=== PATIENT | female | born 1965 | race Caucasian/White ===

== ENCOUNTER → 2017-02-28 | Outpatient (CLI) | payer BC | LOC: M LAB 10:58 | PROVIDERS: ATTEND Nurse Practitioner Family | DX: Z98.84 Bariatric surgery status (principal) ==

== ENCOUNTER → 2018-01-01 | Outpatient (REF) | payer BC | LOC: M LAB REF 13:11 | DX: R30.0 Dysuria (principal) | CPT/HCPCS: 87186 ==

== ENCOUNTER 2018-05-14 08:14 | Day surgery (SDC) | payer BC ==
[~2018-05-14 08:14] MED LIST: NS 1,000 ML IV
[2018-05-14] MEDS ORDERED: PROPOFOL 200 MG/20 ML VIAL As Ordered ×2 (09:33→09:35)
== END 2018-05-14 10:57 | disposition home or self-care (01) ==
LOC: M OPP 08:14
DX: Z12.11 Encounter for screening for malignant neoplasm of colon (principal); K64.0 First degree hemorrhoids; D12.3 Benign neoplasm of transverse colon; K57.30 Diverticulosis of large intestine without perforation or abscess without bleeding; Z86.010 Personal history of colon polyps; G47.30 Sleep apnea, unspecified; Z78.0 Asymptomatic menopausal state; Z98.84 Bariatric surgery status; F17.210 Nicotine dependence, cigarettes, uncomplicated; Z90.49 Acquired absence of other specified parts of digestive tract
CPT/HCPCS: 45380

== ENCOUNTER → 2018-06-08 | Outpatient (REF) | payer BC | LOC: M LAB REF 13:24 | DX: N39.0 Urinary tract infection, site not specified (principal) | CPT/HCPCS: 87086 ==

== ENCOUNTER → 2018-11-18 | Outpatient (CLI) | payer BC ==
--- NOTE | 2018-11-19 02:44 | REP ---
Clinical: Acute bronchitis type symptoms . Comparison: 01/08/2017 . Technique: PA and lateral. Findings: The mediastinum and cardiac silhouette are normal. The lung tomas are clear and without acute consolidation, effusion, or pneumothorax. The skeletal structures are intact and normal. Impression: 1. No acute cardiopulmonary process. Electronically Signed by Waldemar Cooney MD 11/19/2018 02:35 A
== END ==
LOC: M WUC 10:33
PROVIDERS: ATTEND Physician Assistant
DX: Z87.09 Personal history of other diseases of the respiratory system (principal)

== ENCOUNTER → 2019-01-15 | Outpatient (CLI) | payer BC ==
--- NOTE | 2019-01-15 12:49 | REPMRS ---
Patient History The patient states she had a clinical breast exam in 01/2019. Patient is postmenopausal. No known family history of cancer. Saline implants in both breasts, 2017. Took hormonal contraceptives for 12 years. 3D TOMOSYNTHESIS WAS PERFORMED. [facility] lifetime risk for breast cancer is 7.4%. Digital Woman Screen Mammo: January 15, 2019 - Exam #: [id number] Bilateral CC and MLO view(s) were taken. Technologist: Radha Wang, Technologist Prior study comparison: March 30, 2015, digital mammo diagnostic bilateral, performed at [facility]. February 15, 2012, bilateral bilat screen digital mammo, performed at [facility] ([facility]). FINDINGS: There are scattered fibroglandular densities. There has been no change in the appearance of the mammogram from the prior studies. There is a mild amount of residual fibroglandular tissue which is fairly symmetric. There is no interval development of dominant mass, architectural distortion, or clustered microcalcification suggestive of malignancy. Assessment: BI-RADS/ACR category 1 mammogram. Negative Mammogram. Recommendation Routine screening mammogram in 1 year (for women over age 40). This mammogram was interpreted with the aid of an FDA-approved computer-aided dectection system. Electronically Signed By: Walter De Anda MD 01/15/19 [id number]
== END ==
LOC: M WHC 11:07
PROVIDERS: ATTEND Nurse Practitioner Family
DX: Z12.31 Encounter for screening mammogram for malignant neoplasm of breast (principal)

== ENCOUNTER → 2019-01-15 | Outpatient (REF) | payer BC ==
[2019-01-22 14:29] LABS: HPV HYBRID CAPTURE II Negative (Negative)
== END ==
LOC: M SFHCWAGY 11:23
PROVIDERS: ATTEND Nurse Practitioner Family
DX: Z12.4 Encounter for screening for malignant neoplasm of cervix (principal)
CPT/HCPCS: 87624; G0123

== ENCOUNTER → 2019-10-27 | Outpatient (CLI) | payer BC ==
--- NOTE | 2019-10-28 03:04 | REP ---
Clinical: Shortness of breath and acute bronchitis . Comparison: 11/18/2018 . Technique: PA and lateral. Findings: The mediastinum and cardiac silhouette are normal. The lung tomas are clear and without acute consolidation, effusion, or pneumothorax. The skeletal structures are intact and normal. Impression: 1. No acute consolidation or effusion. Electronically Signed by Waldemar Cooney MD 10/28/2019 02:55 A
== END ==
LOC: M WUC 14:27
PROVIDERS: ATTEND Physician Assistant
DX: J20.9 Acute bronchitis, unspecified (principal); R06.02 Shortness of breath

== ENCOUNTER → 2020-06-03 | Outpatient (REF) | payer BC ==
[2020-06-03 16:37] LABS: HEMATOCRIT 45.3 % (36.0-47.0); HEMOGLOBIN 14.7 g/dl (12.0-15.5); MEAN CORPUSCULAR HEMOGLOBIN 29.9 pg (27.0-33.0); MEAN CORPUSCULAR HGB CONC 32.5 g/dl (32.0-36.5); MEAN CORPUSCULAR VOLUME 92.1 fl (80.0-96.0); PLATELET COUNT, AUTOMATED 294 10^3/uL (150-450); RED BLOOD COUNT 4.92 10^6/uL (4.00-5.40); WHITE BLOOD COUNT 11.7 10^3/uL (4.0-10.0)
[2020-06-03 17:40] LABS: ALBUMIN 3.9 GM/DL (3.2-5.2); ALT/SGPT 16 U/L (12-78); BILIRUBIN,TOTAL 0.3 MG/DL (0.2-1.0); BLOOD UREA NITROGEN 19 MG/DL (7-18); CALCIUM LEVEL 9.7 MG/DL (8.5-10.1); CARBON DIOXIDE LEVEL 26 MEQ/L (21-32); CHLORIDE LEVEL 108 MEQ/L (98-107); CHOLESTEROL LEVEL 188 MG/DL (<200); CHOLESTEROL RISK RATIO 4.177 (<5); CREATININE FOR GFR 0.77 MG/DL (0.55-1.30); FOLATE 12.9 NG/ML; FREE T4 1.18 NG/DL (0.76-1.46); GLOMERULAR FILTRATION RATE > 60.0 (>51); GLUCOSE, FASTING 77 MG/DL (70-100); HDL CHOLESTEROL 45 MG/DL (>40); LDL CHOLESTEROL 118 MG/DL (<100); NON-HDL-C 143 MG/DL; POTASSIUM SERUM 5.2 MEQ/L (3.5-5.1); SODIUM LEVEL 140 MEQ/L (136-145); TOTAL 25(OH) VITAMIN D 30.8 NG/ML (30.0-100.0); TOTAL PROTEIN 7.2 GM/DL (6.4-8.2); TRIGLYCERIDES LEVEL 125 MG/DL (<150); VITAMIN B12 LEVEL 418 PG/ML
== END ==
LOC: M SFHCADAM 12:32
PROVIDERS: ATTEND Physician Assistant
DX: M62.89 Other specified disorders of muscle (principal); R00.2 Palpitations; F41.9 Anxiety disorder, unspecified; I49.3 Ventricular premature depolarization; E55.9 Vitamin D deficiency, unspecified

== ENCOUNTER → 2020-09-01 | Outpatient (CLI) | payer BC ==
[~2020-09-01] MED LIST changes: +ALLE180T33 PO; -NS 1,000 ML IV; +OMEP-221 PO
== END ==
LOC: M LABSMTC 12:47
PROVIDERS: ATTEND Anesthesiology
DX: Z01.812 Encounter for preprocedural laboratory examination (principal); Z20.822 Contact with and (suspected) exposure to COVID-19

== ENCOUNTER 2020-09-06 08:27 | Day surgery (SDC) | payer BC ==
[~2020-09-06] VITALS: Ht 160 cm; Wt 83.0 kg
[~2020-09-06 08:27] MED LIST changes: +NS 1,000 ML IV ONE
--- OUTSIDE RECORDS SUMMARY | 2020-09-06 08:33 | CCD | Continuity of Care Document ---
Author Author Arianna SALVADOR M.D. Organization Unknown Address [address] [place] [id number] Phone [phone] Care Team Providers Care Tag Meter Operator Name Role Phone Maryellen Cruz AUTM [phone] Problems Active Problems Provider Date Screening for malignant neoplasm of colon Marcelino gamble M.D. Onset: 03/01/2016 Social History Type Date Description Comments Sex Unknown ETOH Use Occasionally Tobacco Use Start: Unknown Patient is a current smoker, smo kes every day Allergies, Adverse Reactions, Alerts Description No Known Drug Allergies Medications Active Medications SIG Qnty Indications Ordering Provide r Date Sutab [id number] Tablets as directed 1box Marcelino Salvador M.D. 08/24/[address] Take 1 Capsule By Mouth Every Day 30 Minutes Before Breakfast U nknown Immunizations Description No Information Available Vital Signs Date Vital Result Comment 08/24/2020 3:30pm Height 63 inches 5'3" Weight 184.00 lb BP Systolic 124 mmHg BP Diastolic 69 mmHg Heart Rate 96 /min BMI (Body Mass Index) 32.6 kg/m2 Weight 83.462 kg Body Temperature 97.3 F 04/09/2018 3:11pm Height 63 inches 5'3" Weight 154.00 lb BP Systolic 105 mmHg BP Diastolic 71 mmHg Heart Rate 85 /min BMI (Body Mass Index) 27.3 kg/m2 Weight 69.854 kg Results Description No Information Available Procedures Description No Information Available Medical Devices Description No Information Available Encounters Type Date Location Provider Dx Diagnosis Office Visit 08/24/2020 3:30p Main Office Marcelino Salvador M.D. Z 86.010 Personal history of colonic polyps R13.10 Dysphagia, unspecified Z80.0 Family history of malignant neoplasm of digestive organs Assessments Date Code Description Provider 08/24/2020 Z86.010 Personal history of colonic poly ps Marcelino Salvador M.D. 08/24/2020 R13.10 Dysphagia Marcelino klein M.D. 08/24/2020 Z80.0 Family history of cancer of colo n Marcelino Salvador M.D. Plan of Treatment Future Appointment(s):* 08/31/2020 6:00 am - Carlos at Main Office * 09/06/2020 9:15 am - Marcelino Salvador M.D. at Main Office 08/24/2020 - Marcelino Salvador M.D.* Z86.010 Personal history of colonic polyps* Comments:* 55 yo female who presents for a colonoscopy/egd due to a h/o colonic polyps,and heartburn/dysphagia. Last scope was in 2018. No c/o abdominal pain, weight loss, change in bowel habits, or rectal bleeding. Positive family h/o colon cancer- mother. No h/o chest pain, or sob. Plan:1. 1.Schedule patient for Colonoscopy + egd + balloon dilatation2. Informed consent given.3. Advised to stop asa, plavix,and anticoagulation 3 to 7 days prior to the procedures. * R13.10 Dysphagia* Comments:* Schedule Upper Endoscopy. * Z80.0 Family history of cancer of colon* Comments:* Plan :1.Setup colonoscopy.2. Informed consent given. Functional Status Description No Information Available Mental Status Description No Information Available Referrals Description No Information Available
--- OUTSIDE RECORDS SUMMARY | 2020-09-06 08:33 | CCD | Continuity of Care Document ---
Author Author Arianna SALVADOR M.D. Organization Unknown Address [address] [place] [address] Phone [phone] Care Team Providers Care Tank Riveter Name Role Phone Maryellen Cruz AUTM [phone] Problems Active Problems Provider Date Screening for malignant neoplasm of colon Marcelino gamble M.D. Onset: 03/01/2016 Social History Type Date Description Comments Sex Unknown ETOH Use Occasionally Tobacco Use Start: Unknown Patient is a current smoker, smo kes every day Allergies, Adverse Reactions, Alerts Description No Known Drug Allergies Medications Active Medications SIG Qnty Indications Ordering Provide r Date Sutab [id number] Tablets as directed 1box Marcelino Salvador M.D. [...] Medical Devices Description No Information Available Encounters Description No Information Available Assessments Date Code Description Provider 08/24/2020 Z86.010 Personal history of colonic poly ps Marcelino Salvador M.D. 08/24/2020 R13.10 Dysphagia Marcelino klein M.D. 08/24/2020 Z80.0 Family history of cancer of colo n Marcelino Salvador M.D. Plan of Treatment Future Appointment(s):* 09/06/2020 9:15 am - Marcelino Salvador M.D. [...]
--- OUTSIDE RECORDS SUMMARY | 2020-09-06 08:34 | CCD ---
Author Author [facility] Organization [facility] Address Unknown Phone Unavailable Care Team Providers Care Cake Wringer Name Role Phone Ana Salvador MD Unavailable Unavailable Ana Salvador MD Unavailable Unavailable Ana Salvador MD Unavailable Unavailable Ana Salvador MD Unavailable Unavailable Ana Salvador MD Unavailable Unavailable Ana Salvador MD Unavailable Unavailable Ana Salvador MD Unavailable Unavailable Ana Salvador MD Unavailable Unavailable Ana Salvador MD Unavailable Unavailable Ana Salvador MD Unavailable Unavailable Ana Salvador MD Unavailable Unavailable Ana Salvador MD Unavailable Unavailable Ana Salvador MD Unavailable Unavailable Ana Salvador MD Unavailable Unavailable Ana Salvador MD Unavailable Unavailable Ana Salvador MD Unavailable Unavailable Ana Salvador MD Unavailable Unavailable Ana Salvador MD Unavailable Unavailable Ana Salvador MD Unavailable Unavailable Ana Salvador MD Unavailable Unavailable Ana Salvador MD Unavailable Unavailable Ana Salvador MD Unavailable Unavailable Ana Salvador MD Unavailable Unavailable Ana Salvador MD Unavailable Unavailable Ana Salvador MD Unavailable Unavailable Ana Salvador MD Unavailable Unavailable Modesto, Ana Benson MD Unavailable Unavailable Modesto, S Marcelino HEAD Unavailable Unavailable Modesto, S Marcelino HEAD Unavailable Unavailable Modesto, S Marcelino HEAD Unavailable Unavailable Modesto, S Marcelino HEAD Unavailable Unavailable Modesto, S Marcelino HEAD Unavailable Unavailable Modesto, S Marcelino HEAD Unavailable Unavailable Modesto, S Marcelino HEAD Unavailable Unavailable Modesto, S Marcelino HEAD Unavailable Unavailable Modesto, S Marcelino HEAD Unavailable Unavailable Modesto, S Marcelino HEAD Unavailable Unavailable Modesto, S Marcelino HEAD Unavailable Unavailable Modesto, S Marcelino HEAD Unavailable Unavailable Modesto, S Marcelino HEAD Unavailable Unavailable Modesto, S Marcelino HEAD Unavailable Unavailable Modesto, S Marcelino HEAD Unavailable Unavailable Modesto, S Marcelino HEAD Unavailable Unavailable Modesto, S Marcelino HEAD Unavailable Unavailable Modesto, S Marcelino HEAD Unavailable Unavailable Modesto, S Marcelino HEAD Unavailable Unavailable Modesto, S Marcelino HEAD Unavailable Unavailable Modesto, S Marcelino HEAD Unavailable Unavailable Modesto, S Marcelino HEAD Unavailable Unavailable Modesto, Ana Benson MD Unavailable Unavailable Dietsche, M Radha CANOE BUILDER Unavailable Unavailable Dietsche, M Radha CANOE BUILDER Unavailable Unavailable Dietsche, M Radha CANOE BUILDER Unavailable Unavailable Dietsche, M Radha CANOE BUILDER Unavailable Unavailable Dietsche, M Radha CANOE BUILDER Unavailable Unavailable Dietsche, M Radha CANOE BUILDER Unavailable Unavailable Dietsche, M Radha CANOE BUILDER Unavailable Unavailable Dietsche, M Radha CANOE BUILDER Unavailable Unavailable Dietsche, M Radha CANOE BUILDER Unavailable Unavailable Dietsche, M Radha CANOE BUILDER Unavailable Unavailable Dietsche, M Radha CANOE BUILDER Unavailable Unavailable Dietsche, M Radha CANOE BUILDER Unavailable Unavailable ESTEPHANIE, TABBY PA Unavailable Unavailable ESTEPHANIE, TABBY PA Unavailable Unavailable ESTEPHANIE, TABBY PA Unavailable Unavailable ESTEPHANIE, TABBY PA Unavailable Unavailable ESTEPHANIE, TABBY PA Unavailable Unavailable ESTEPHANIE, TABBY PA Unavailable Unavailable ESTEPHANIE, TABBY PA Unavailable Unavailable ESTEPHANIE, TABBY PA Unavailable Unavailable ESTEPHANIE, TABBY PA Unavailable Unavailable ESTEPHANIE, TBABY PA Unavailable Unavailable ESTEPHANIE, TABBY PA Unavailable Unavailable ESTEPHANIE, TABBY PA Unavailable Unavailable ESTEPHANIE, TABBY PA Unavailable Unavailable ESTEPHANIE, TABBY PA Unavailable Unavailable ESTEPHANIE, TABBY PA Unavailable Unavailable ESTEPHANIE, TABBY PA Unavailable Unavailable ESTEPHANIE, TABBY PA Unavailable Unavailable ESTEPHANIE, TABBY PA Unavailable Unavailable ESTEPHANIE, TABBY PA Unavailable Unavailable ESTEPHANIE, TABBY PA Unavailable Unavailable ESTEPHANIE, TABBY PA Unavailable Unavailable ESTEPHANIE, TABBY PA Unavailable Unavailable ESTEPHANIE, TABBY PA Unavailable Unavailable ESTEPHANIE, TABBY PA Unavailable Unavailable ESTEPHANIE, TABBY PA Unavailable Unavailable ESTEPHANIE, TABBY PA Unavailable Unavailable ESTEPHANIE, TABBY PA Unavailable Unavailable ESTEPHANIE, TABBY PA Unavailable Unavailable ESTEPHANIE, TABBY PA Unavailable Unavailable ESTEPHANIE, TABBY PA Unavailable Unavailable ESTEPHANIE, TABBY PA Unavailable Unavailable ESTEPHANIE, TABBY PA Unavailable Unavailable ESTEPHANIE, TABBY PA Unavailable Unavailable ESTEPHANIE, TABBY PA Unavailable Unavailable ESTEPHANIE, TABBY PA Unavailable Unavailable ESTEPHANIE, TABBY PA Unavailable Unavailable ESTEPHANIE, TABBY PA Unavailable Unavailable ESTEPHANIE, TABBY PA Unavailable Unavailable ESTEPHANIE, TABBY PA Unavailable Unavailable Chris, A Tesfaye MD Unavailable Unavailable Chris, A Tesfaye MD Unavailable Unavailable Chris, A Tesfaye MD Unavailable Unavailable Chris, A Tesfaye MD Unavailable Unavailable Chris, A Tesfaye MD Unavailable Unavailable Chris, A Tesfaye MD Unavailable Unavailable Chris, A Tesfaye MD Unavailable Unavailable Chris, A Tesfaye MD Unavailable Unavailable Chris, A Tesfaye MD Unavailable Unavailable Chris, A Tesfaye MD Unavailable Unavailable Chris, A Tesfaye MD Unavailable Unavailable Chris, A Tesfaye MD Unavailable Unavailable Chris, A Tesfaye MD Unavailable Unavailable Chris, A Tesfaye MD Unavailable Unavailable Chris, A Tesfaye MD Unavailable Unavailable Chris, A Tesfaye MD Unavailable Unavailable Chris, A Tesfaye MD Unavailable Unavailable Chris, A Tesfaye MD Unavailable Unavailable Chris, A Tesfaye MD Unavailable Unavailable Chris, A Tesfaye MD Unavailable Unavailable Chris, A Tesfaye MD Unavailable Unavailable Chris, A Tesfaye MD Unavailable Unavailable Chris, A Tesfaye MD Unavailable Unavailable Chris, A Tesfaye MD Unavailable Unavailable Chris, A Tesfaye MD Unavailable Unavailable Chris, A Tesfaye MD Unavailable Unavailable Chris, A Tesfaye MD Unavailable Unavailable Chris, A Tesfaye MD Unavailable Unavailable Chris, A Tesfaye MD Unavailable Unavailable Chris, A Tesfaye MD Unavailable Unavailable Chris, A Tesfaye MD Unavailable Unavailable Chris, A Tesfaye MD Unavailable Unavailable Chris, A Tesfaye MD Unavailable Unavailable Chris, A Tesfaye MD Unavailable Unavailable Chris, A Tesfaye MD Unavailable Unavailable Chris, A Tesfaye MD Unavailable Unavailable Chris, A Tesfaye MD Unavailable Unavailable Chris, A Tesfaye MD Unavailable Unavailable Chris, A Tesfaye MD Unavailable Unavailable Chris, A Tesfaye MD Unavailable Unavailable Chris, A Tesfaye MD Unavailable Unavailable Chris, A Tesfaye MD Unavailable Unavailable Chris, A Tesfaye MD Unavailable Unavailable Chris, A Tesfaye MD Unavailable Unavailable Chris, A Tesfaye MD Unavailable Unavailable Chris, A Tesfaye MD Unavailable Unavailable Chris, A Tesfaye MD Unavailable Unavailable Chris, A Tesfaye MD Unavailable Unavailable Chris, A Tesfaye MD Unavailable Unavailable Chris, A Tesfaye MD Unavailable Unavailable Chris, A Tesfaye MD Unavailable Unavailable Chris, A Tesfaye MD Unavailable Unavailable Chris, A Tesfaye MD Unavailable Unavailable Chris, A Tesfaye MD Unavailable Unavailable Chris, A Tesfaye MD Unavailable Unavailable Chris, A Tesfaye MD Unavailable Unavailable Chris, A Tesfaye MD Unavailable Unavailable Chris, A Tesfaye MD Unavailable Unavailable Chris, A Tesfaye MD Unavailable Unavailable Chris, A Tesfaye MD Unavailable Unavailable Chris, A Tesfaye MD Unavailable Unavailable Chris, A Tesfaye MD Unavailable Unavailable Chris, A Tesfaye MD Unavailable Unavailable Chris, A Tesfaye MD Unavailable Unavailable Chris, A Tesfaye MD Unavailable Unavailable Chris, A Tesfaye MD Unavailable Unavailable Chris, A Tesfaye MD Unavailable Unavailable Chris, A Tesfaye MD Unavailable Unavailable Chris, A Tesfaye MD Unavailable Unavailable Chris, A Tesfaye MD Unavailable Unavailable Chris, A Tesfaye MD Unavailable Unavailable Chris, A Tesfaye MD Unavailable Unavailable Chris, A Tesfaye MD Unavailable Unavailable Chris, A Tesfaye MD Unavailable Unavailable Chris, A Tesfaye MD Unavailable Unavailable Chris, A Tesfaye MD Unavailable Unavailable Chris, A Tesfaye MD Unavailable Unavailable Chris, A Tesfaye MD Unavailable Unavailable Chris, A Tesfaye MD Unavailable Unavailable Chris, A Tesfaye MD Unavailable Unavailable Re-disclosure Warning The records that you are about to access may contain information from federally-assisted alcohol or drug abuse programs. If such information is present, then the following federally mandated warning applies: This information has been disclosed to you from records protected by federal confidentiality rules (42 CFR part 2). The federal rules prohibit you from making any further disclosure of this information unless further disclosure is expressly permitted by the written consent of the person to whom it pertains or as otherwise permitted by 42 CFR part 2. A general authorization for the release of medical or other information is NOT sufficient for this purpose. The Federal rules restrict any use of the information to criminally investigate or prosecute any alcohol or drug abuse patient.The records that you are about to access may contain highly sensitive health information, the redisclosure of which is protected by Article 27-F of the [facility] Public Health law. If you continue you may have access to information: Regarding HIV / AIDS; Provided by facilities licensed or operated by the [facility] Office of Mental Health; or Provided by the [facility] Office for People With Developmental Disabilities. If such information is present, then the following [facility] mandated warning applies: This information has been disclosed to you from confidential records which are protected by state law. State law prohibits you from making any further disclosure of this information without the specific written consent of the person to whom it pertains, or as otherwise permitted by law. Any unauthorized further disclosure in violation of state law may result in a fine or alf sentence or both. A general authorization for the release of medical or other information is NOT sufficient authorization for further disc losure. Family History Family Member Name Family Member Gender Family Member Status Date o f Status Description Data Source(s) Unknown Unknown Problem [facility] ([facility]) Unknown Female Problem [facility] ([facility]) Unknown Male Problem [facility] ([facility] Encounters Encounter Providers Location Date Indications Data Source(s ) Outpatient Attender: Marcelino Salvador MD Main Office 08/24/2020 02:30:00 PM EST [facility] ([facility]) Outpatient Attender: Tesfaye Perez MD [place] 07/13/2020 01:00:00 P M EST [facility] ([facility]) Outpatient [address] [facility], [facility] [id number] 06/24/2020 12:00:00 AM EST eCW1 ([facility]) Outpatient Referrer: Radha Figueroa NP 11/05/2019 05:48:00 AM EDT [facility] Outpatient Attender: TABBY romo 10/27/2019 02:00:00 PM EDT [facility] ([facility] Medications Medication Brand Name Start Date Product Form Dose Route Admi nistrative Instructions Pharmacy Instructions Status Indications Reaction Description Data Source(s) Sutab Sutab 08/24/2020 12:00:00 AM EST active MED[facility] ([facility]) 60 ACTUAT Albuterol 0.09 MG/ACTUAT Metered Dose Inhaler [place] Sulfate HFA 10/27/2019 12:00:00 AM EDT RESPIRATORY active MED[facility] ([facility]) Prednisone 20 MG Oral Tablet Prednisone 10/27/2019 12:00:00 AM EDT ORAL active MED[facility] ([facility]) Fluticasone Propionate Fluticasone Propionate 10/27/2019 12:00:00 AM E DT active MEDENT ([facility]) Insurance Providers Payer name Policy type / Coverage type Policy ID Covered green party ID Covered green party's relationship to garrido Policy [place] Plan Information [employer] [place]/307 [id number] SP [id number] [place] [place]/307 [id number] 2 [id number] [place]/307 [id number] SP [id number] [employer]BS B [id number] P [id number] [employer] [place] 302/307 [id number] ANSI-Commercial [id number] BC[employer] Commercial [id number] Family Dependent [id number] [employer]/[place] Commercial [id number] Family Dependent [id number] [employer]/[place] Commercial [id number] Family Dependent [id number] BC[employer]/[place] Commercial [id number] Family Dependent [id number] [employer] BC-BS PPO 306 [id number] [place] Commercial [id number] Family Depende nt [id number] EXCELLUS H [id number] Spouse [id number] EXCELLUS H [id number] Spouse [id number] [employer] BC-BS PPO 306 [id number] HU2 [id number] [employer] BCBS B [id number] P [id number] [employer] BCBS B [id number] S [id number] [place] [place] PPO 302/307 [id number] [employer] BC-BS PPO 306 [id number] BS [place] Commercial Family Dependent SELF PAY ONLY UNAVAILABLE SP UNAV AILABLE BC/BS [place] Part B Family Dep endent BC/BS [place] Part B Family Dep endent BC/BS [place] Commercial Self EXCELLUS C [id number] Spouse [id number] SELF PAY UNAVAILABLE UNAVAILA BLE EX[employer]US BCBS B [id number] S [id number] [id number] BCBS OF [place] 090/590 [id number] SP [id number] [place] 306/806 [id number] SP [id number] [place] 306/806 [id number] SP [id number] [place] [place] PPO 302/307 [id number] SP [id number] [place] [place] PPO 302/307 [id number] SP [id number] Problems, Conditions, and Diagnoses Code Display Name Description Problem Type Effective Dates Data Source(s) 09212556 Constipation by outlet obstruction Constipation by outlet obstruction Problem 07/13/2020 12:00:00 AM EST [facility] ([facility]) R13.10 [id number] Esophageal dysphagia Problem 06/24/2020 12:0 0:00 AM EST eCW1 ([facility]) F17.210 [id number] Cigarette nicotine dependence without com plication Problem 06/03/2020 12:00:00 AM EST eCW1 ([facility]) E55.9 Vitamin D deficiency Vitamin D deficiency, unspecified Problem 06/03/2020 12:00:00 AM EST eCW1 ([facility]) N81.6 [id number] Rectocele Problem 06/03/2020 12:00:00 AM ES T eCW1 ([facility]) F41.9 [id number] Anxiety Problem 06/03/2020 12:00:00 AM ES T eCW1 ([facility]) I49.3 [id number] PVC (premature ventricular contraction) P roblem 06/03/2020 12:00:00 AM EST eCW1 ([facility]) Results ID Date Data Source [id number] 09/01/2020 12:45:00 PM EST [facility] Name Value Range Interpretation Code Description Data Berenice rce(s) Supporting Document(s) SARS coronavirus 2 RNA Not Detected [facility] [place] This lab was ordered by [facility] and reported by [facility]. Procedure Social History Code Duration Value Status Description Data Source(s ) Smoking 06/24/2020 12:00:00 AM EST Current Smoker completed Curre nt Smoker eCW1 ([facility]) Vital Signs ID Date Data Source UNK Name Value Range Interpretation Code Description Data Source(s) Body temperature 97.3 [degF] 97.3 [degF] [facility] ([facility]) Body weight 83.462 kg 83.462 kg [facility] ([facility]) Body mass index (BMI) [Ratio] 32.6 kg/m2 32.6 k g/m2 [facility] ([facility]) Heart rate 96 /min 96 /min [facility] ([facility]) Diastolic blood pressure 69 mm[Hg] 69 mm[Hg] MED[facility] ([facility]) Systolic blood pressure 124 mm[Hg] 124 mm[Hg] M EDENT ([facility]) Body weight 184.00 [lb_av] 184.00 [lb_av] MEDEN T ([facility]) Body height 63 [in_i] 63 [in_i] [facility] ([facility]) 5'3" Body mass index (BMI) [Ratio] 31.9 kg/m2 31.9 k g/m2 [facility] ([facility]) Body weight 180.00 [lb_av] 180.00 [lb_av] MEDEN T ([facility]) Body height 63 [in_i] 63 [in_i] MEDENT ([facility]) 5'3" Respiratory rate 18 /min 18 /min [facility] ( [facility]) Body temperature 97.9 [degF] 97.9 [degF] [facility] ([facility]) Heart rate 84 /min 84 /min MED[facility] ([facility]) Diastolic blood pressure 84 mm[Hg] 84 mm[Hg] [facility] ([facility]) Systolic blood pressure 110 mm[Hg] 110 mm[Hg] M EDENT ([facility]) Diastolic blood pressure 64 mm[Hg] 64 mm[Hg] eCW1 ([facility]) Systolic blood pressure 120 mm[Hg] 120 mm[Hg] e CW1 ([facility]) Body temperature 98.5 [degF] 98.5 [degF] eCW1 ( [facility]) Respiratory rate 18 /min 18 /min eCW1 ([facility]) Heart rate 95 /min 95 /min eCW1 ([facility]) Body mass index (BMI) [Ratio] 32.20 kg/m2 32.20 kg/m2 W1 ([facility]) Body height 63 [in_i] 63 [in_i] eCW1 ([facility]) Body weight 181.8 [lb_av] 181.8 [lb_av] eCW1 ([facility]) Body mass index (BMI) [Ratio] 29.2 kg/m2 29.2 k g/m2 MEDENT ([facility]) Body height 63 [in_i] 63 [in_i] MED[facility] ([facility]) 5'3" Body weight 165.00 [lb_av] 165.00 [lb_av] MEDEN T ([facility]) Body temperature 98.0 [degF] 98.0 [degF] MED[facility] ([facility]) Oxygen saturation in Arterial blood by Pulse oximetry 96 % 96 % [facility] ([facility]) Respiratory rate 18 /min 18 /min [facility] [place] [facility]) Heart rate 81 /min 81 /min [facility] ([facility]) Diastolic blood pressure 68 mm[Hg] 68 mm[Hg] [facility] ([place] [facility]) Systolic blood pressure 111 mm[Hg] 111 mm[Hg] [facility] ([facility])
--- OUTSIDE RECORDS SUMMARY | 2020-09-06 08:34 | CCD | Continuity of Care Document ---
Author Author Arianna CLIFFORD MD Organization Unknown Address [address] [place] [id number] Phone [phone] Care Team Providers Care Advertising Copy Writer Name Role Phone Maryellen CruzM [phone] Problems Description No Information Available Social History Description No Information Available Allergies, Adverse Reactions, Alerts Description No Information Available Medications Description No Information Available Immunizations Description No Information Available Vital Signs Date Vital Result Comment 07/13/2020 2:06pm BP Systolic 110 mmHg BP Diastolic 84 mmHg Heart Rate 84 /min Body Temperature 97.9 F Respiratory Rate 18 /min Height 63 inches 5'3" Weight 180.00 lb BMI (Body Mass Index) 31.9 kg/m2 Results Description No Information Available Procedures Description No Information Available Medical Devices Description No Information Available Encounters Description No Information Available Assessments Description No Information Available Plan of Treatment No Information Available Functional Status Description No Information Available Mental Status Description No Information Available Referrals Description No Information Available
--- OUTSIDE RECORDS SUMMARY | 2020-09-06 08:34 | CCD ---
Author Author [facility] Organization 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 Active 73864238 Problem Allergic rhinitis, cause unspecified 477.9 Act yfn 01794823 Problem Asthma, unspecified, unspecified status 493.90 Active 86116521 Problem Nondependent tobacco use disorder 305.1 Active 734504400 Problem Depressive disorder, not elsewhere classified 311 Active 92184715 Problem Vitamin d deficiency 268.9 Active 19528358 Problem Morbid obesity 278.01 Active 619503451 Problem Allergic rhinitis, cause unspecified J30.9 Act yfn 33411105 Problem Status post bariatric surgery Z98.84 Active 16 1358211 Problem Tobacco abuse Z72.0 Active 91008422 Problem PVC (premature ventricular contraction) I49.3 Active 05273268 Problem Chronic constipation K59.00 Active 362418772 Problem Esophageal dysphagia R13.10 Active 94206028 Problem Morbid obesity due to excess calories E66.01 Ac tive 419471417 Problem Anxiety F41.9 Active 61574178 Problem Rectocele N81.6 Active 7746833 Problem Vitamin D deficiency, unspecified E55.9 Active 48211703 Problem Cigarette nicotine dependence without complication F17.210 Active 50296688 ALLERGIES Allergen (clinical drug ingredient) Drug/Non Drug Allergy do cumented on EMR Reaction Allergy Type Onset Date Status Zyrtec D 12hr Rash Drug Allergy Active ENCOUNTERS from 1965 to 2020-07-06 Encounter Location Date Provider Diagnosis [facility] [address] [place] [id number] Jun, Reg ilia Wetterhahn Esophageal dysphagia R13.10 ; Rectocele N81.6 and Cigarette nicotine dependence without complication F17.210 IMMUNIZATIONS Vaccine Route Administration Date Status Influenza (Pharmacy Given) Unknown Apr 21, 2019 Admin istered Influenza (6mo & up) Fluzone IM Intramuscular Apr 08, 2015 Ad ministered SOCIAL HISTORY Tobacco Use: Social History Observation Description Date Details (start date - stop date) Current Smoker Sex Assigned At : Social History Observation Description Sex Assigned At Unknown Education: Question Answer Notes Level of Education: High School GED Language: Question Answer Notes Languages spoken: Swedish Jewish: Question Answer Notes Jewish 33 None Alcohol Screening: Question Answer Notes Did you have a drink containing alcohol in the past year? Ye s Points 1 Interpretation Negative How often did you have six or more drinks on one occas ion in the past year? Never (0 points) How many drinks did you have on a typica l day when you were drinking in the past year? 1 or 2 (0 points) How often did you have a drink containing alcohol in t he past year? Monthly or less (1 point) BMI Care Goal Follow-Up Question Answer Notes Above Normal BMI Follow-Up Giving encouragement to exercise Tobacco Use: Question Answer Notes Are you a: current smoker Patient counseled on the dangers of tobacco use and urged to quit: 01/15/2019 How many cigarettes a day do you smoke? 11-20 Are you interested in quitting? Thinking about quitting Counseled the patient on smoking cessation, education provid ed 01/15/2019 REASON FOR REFERRAL No Information VITAL SIGNS Weight 181.8 lbs Jun, Height 63 in Jun, BMI 32.20 kg/m2 Jun, Heart Rate 95 /min Jun, Respiratory Rate 18 /min Jun, Temperature 98.5 degrees Fahrenheit Jun, Oximetry 96 Jun, Blood pressure systolic 120 mm Hg Jun, Blood pressure diastolic 64 mm Hg Jun, MEDICATIONS Medication SIG (Take, Route, Frequency, Duration) Notes Start Da te End Date Status Ventolin HFA 108 (90 Base) MCG/ACT 2 puffs Inhalation 4 times a day as needed for 30 day(s) Not-Taking Debora 180 MG 1 tablet as needed Orally Twice a day Active Multivitamin Gummies Adults - 1 tab Orally three times daily Active Omeprazole 40 MG 1 capsule 30 minutes before morning meal Orally Once a day for 90 Active Vitamin D 5,000 UNIT 1 tab Orally 1 time weekly Active PROCEDURES No Information RESULTS No Results REASON FOR VISIT 3 week lab follow up MEDICAL (GENERAL) HISTORY Type Description Date Medical History allergic rhinitis, year round environmen merced Medical History asthma, mild intermittent Medical History high triglycerides Medical History morbid obesity Medical History vitamin d deficiency Medical History s/p gastric bypass Medical History Anxiety Medical History Smoker Medical History Chronic Constipation, lack o f bowel urgency, Laxitive dependent (Fleet enema), REctocele, Large Rectal Vault, Pelvic floor Dysfunction per anorectalmanometry by GI specialist in [place] 2015 Medical History H/O Hemorrhoids s/pCRH hemorrhoid bandin g Surgical History C section 84,86,92,95 Surgical History cholecystectomy 91 Surgical History gastric bypass sleeve 09-27-15 Surgical History Tonsilectomy Surgical History saline breast implants 10/2016 Surgical History facial skin removed after gastric sleeve 12/2016 Surgical History colonoscopy polypectomy 2019 Goals Section No Information Health Concerns No Information MEDICAL EQUIPMENT No Information MENTAL STATUS No Information FUNCTIONAL STATUS No Information ASSESSMENTS Encounter Date Diagnosis Assessment Notes Treatment Notes Treatm ent Clinical Notes Jun, Esophageal dysphagia (ICD-10 - R13.10) Jun, Rectocele (ICD-10 - N81.6) Has appt with colorectal specialist pending Jun, Cigarette nicotine dependenc e without complication (ICD-10 - F17.210) PLAN OF TREATMENT Medication Medication Name Sig Start Date Stop Date Omeprazole 40 MG 1 capsule 30 minutes before morning meal Orally Once a day for 90 Treatment Notes Assessment Notes Clinical Notes Rectocele Has appt with barbie dias specialist pending Next Appt Details 1 Year Reason: Insurance Providers Payer Name Payer Address Payer Phone Insured Name Patient Relati onship to Insured Coverage Start Date Coverage End Date BCBS [employer] PPO [phone] [facility] [place] [id number] VERNON PRAJAPATI
--- OUTSIDE RECORDS SUMMARY | 2020-09-06 08:34 | CCD | Continuity of Care Document ---
Author Author Arianna PEREZ MD Organization Unknown Address [address] [place] [address] Phone [phone] Care Team Providers Care Supervisor [employer] Name Role Phone Maryellen Cruz AUTM [phone] Problems Active Problems Provider Date Constipation by outlet obstruction Tesfaye Perez MD Onset : 07/13/2020 Social History Description No Information Available Allergies, [...] Date Location Provider Dx Diagnosis Office Visit 07/13/2020 2:00p [facility] Tesfaye Perez MD K59.02 Outlet dysfunction constipation Assessments Date Code Description Provider 07/13/2020 K59.02 Constipation by outlet obstructi on Tesfaye Perez MD Plan of Treatment No Information Available Functional Status Description No Information Available Mental Status Description No Information Available Referrals Description No Information Available
--- OUTSIDE RECORDS SUMMARY | 2020-09-06 08:34 | CCD | Continuity of Care Document ---
Author Author Arianna CLIFFORD MD Organization Unknown Address [address] [place] [address] Phone [phone] Care Team Providers Care Environmental Planner Name Role Phone Maryellen CruzM [phone] Problems Description No Information Available Social History Description No Information Available Allergies, Adverse Reactions, Alerts Description No Information Available Medications Description No Information Available Immunizations Description No Information Available Vital Signs Description No Information Available Results Description No Information Available Procedures Description No Information Available Medical Devices Description No Information Available Encounters Description No Information Available Assessments Description No Information Available Plan of Treatment No Information Available Functional Status Description No Information Available Mental Status Description No Information Available Referrals Description No Information Available
[2020-09-06] MEDS ORDERED: fentaNYL 100 MCG/2 ML INJECTION (J3010) As Ordered ONE (08:58)
[2020-09-06] MEDS ORDERED: propofoL 500 MG/50 ML VIAL As Ordered ONE (09:00)
[2020-09-06] MEDS ORDERED: LIDOCAINE 2% 100MG/5ML SDV (FOR ANES.) As Ordered ONE (09:06)
--- NOTE | 2020-09-06 09:45 | ROOR ---
Patient Name: Arianna Sen Procedure Date: 09/06/2020 9:25 AM Date of : 1965 Age: 55 Room: [facility] Gender: Female Note Status: Finalized Procedure: Upper GI endoscopy + Balloon Dilatation Indications: Dysphagia, Heartburn Providers: Marcelino Salvador MD Referring MD: MAYNOR Alberto Requesting Provider: Medicines: Monitored Anesthesia Care Complications: No immediate complications. Procedure: Pre-Anesthesia Assessment: - The heart rate, respiratory rate, oxygen saturations, blood pressure, adequacy of pulmonary ventilation, and response to care were monitored throughout the procedure. The Endoscope was introduced through the mouth, and advanced to the second part of duodenum. The upper GI endoscopy was accomplished without difficulty. The patient tolerated the procedure well. Findings: The Z-line was regular and was found 35 cm from the incisors. A medium-sized hiatal hernia was present. A mild Schatzki ring was found at the gastroesophageal junction. A TTS dilator was passed through the scope. Dilation with a 15-16.5-18 mm balloon dilator was performed to 18 mm. Localized mildly erythematous mucosa without bleeding was found in the gastric antrum. The exam of the duodenum was otherwise normal. Impression: - Z-line regular, 35 cm from the incisors. - Medium-sized hiatal hernia. - Mild Schatzki ring. Dilated. - Erythematous mucosa in the antrum. - No specimens collected. - The examination was otherwise normal. Recommendation: - Patient has a contact number available for emergencies. The signs and symptoms of potential delayed complications were discussed with the patient. Return to normal activities tomorrow. Written discharge instructions were provided to the patient. - Resume previous diet. - Discharge patient to home. - Continue present medications. - Return to referring physician. - Use Prilosec (omeprazole) 40 mg PO daily. - The findings and recommendations were discussed with the patient. Procedure Code(s): --- Professional --- 68187, Esophagogastroduodenoscopy, flexible, transoral; with transendoscopic balloon dilation of esophagus (less than 30 mm diameter) Diagnosis Code(s): --- Professional --- K44.9, Diaphragmatic hernia without obstruction or gangrene K22.2, Esophageal obstruction K31.89, Other diseases of stomach and duodenum R13.10, Dysphagia, unspecified R12, Heartburn CPT copyright 2019 [employer] [place] [employer]. All rights reserved. The codes documented in this report are preliminary and upon pr internship review may be revised to meet current compliance requirements. Marcelino Salvador MD Marcelino Salvador MD 09/06/2020 9:45:32 AM Electronically signed by Marcelino Salvador MD Number of Addenda: 0 Note Initiated On: 09/06/2020 9:25 AM Estimated Blood Loss: Estimated blood loss: none.
--- NOTE | 2020-09-06 10:01 | ROOR ---
Patient Name: Arianna Sen Procedure Date: 09/06/2020 9:29 AM Date of : 1965 Age: 55 Room: [facility] Gender: Female Note Status: Finalized Procedure: Total Colonoscopy to Cecum + Biopsy Polypectomy Indications: Colon cancer screening in patient at increased risk: Colorectal cancer in mother Providers: Marcelino Salvador MD Referring MD: MAYNOR Alberto Requesting Provider: Medicines: Monitored Anesthesia Care Complications: No immediate complications. Procedure: Pre-Anesthesia Assessment: - The heart rate, respiratory rate, oxygen saturations, blood pressure, adequacy of pulmonary ventilation, and response to care were monitored throughout the procedure. The Colonoscope was introduced through the anus and advanced to the cecum, identified by appendiceal orifice and ileocecal valve. The colonoscopy was performed without difficulty. The patient tolerated the procedure well. The quality of the bowel preparation was good. Findings: The perianal and digital rectal examinations were normal. Non-bleeding internal hemorrhoids were found during retroflexion. The hemorrhoids were small and Grade I (internal hemorrhoids that do not prolapse). Multiple small and large-mouthed diverticula were found in the recto-sigmoid colon, sigmoid colon and descending colon. A diminutive polyp was found in the ileocecal valve. The polyp was sessile. The polyp was removed with a cold biopsy forceps. Resection and retrieval were complete. The exam was otherwise without abnormality on direct and retroflexion views. Impression: - Non-bleeding internal hemorrhoids. - Diverticulosis in the recto-sigmoid colon, in the sigmoid colon and in the descending colon. - One diminutive polyp at the ileocecal valve, removed with a cold biopsy forceps. Resected and retrieved. - The examination was otherwise normal on direct and retroflexion views. - The exam was otherwise normal to the cecum. Recommendation: - Patient has a contact number available for emergencies. The signs and symptoms of potential delayed complications were discussed with the patient. Return to normal activities tomorrow. Written discharge instructions were provided to the patient. - High fiber diet. - Discharge patient to home. - Continue present medications. - Await pathology results. - Telephone GI clinic for pathology results in 1 week. - Repeat colonoscopy in 5 years for screening purposes. - Return to referring physician. - The findings and recommendations were discussed with the patient. Procedure Code(s): --- Professional --- 20134, Colonoscopy, flexible; with biopsy, single or multiple Diagnosis Code(s): --- Professional --- Z80.0, Family history of malignant neoplasm of digestive organs K64.0, First degree hemorrhoids K63.5, Polyp of colon K57.30, Diverticulosis of large intestine without perforation or abscess without bleeding CPT copyright 2019 [employer]. All rights reserved. The codes documented in this report are preliminary and upon firmware test engineer review may be revised to meet current compliance requirements. Marcelino Salvador MD Marcelino Salvador MD 09/06/2020 10:00:51 AM Electronically signed by Marcelino Salvador MD Number of Addenda: 0 Note Initiated On: 09/06/2020 9:29 AM Estimated Blood Loss: Estimated blood loss: none.
[2020-09-06 10:28] VITALS: BP 103/51
== END 2020-09-06 10:31 | disposition home or self-care (01) ==
LOC: M OPP 08:27
PROVIDERS: ATTEND Internal Medicine Gastroenterology
DX: Z12.11 Encounter for screening for malignant neoplasm of colon (principal); Z80.0 Family history of malignant neoplasm of digestive organs; R13.10 Dysphagia, unspecified; R12 Heartburn; D12.0 Benign neoplasm of cecum; K64.0 First degree hemorrhoids; K57.30 Diverticulosis of large intestine without perforation or abscess without bleeding; K44.9 Diaphragmatic hernia without obstruction or gangrene; K22.2 Esophageal obstruction; K31.89 Other diseases of stomach and duodenum; F17.210 Nicotine dependence, cigarettes, uncomplicated; Z98.84 Bariatric surgery status; Z79.899 Other long term (current) drug therapy
CPT/HCPCS: 43249; 45380; 88305; J3010

== ENCOUNTER → 2020-10-12 | Outpatient (REF) | payer BC ==
[~2020-10-12] MED LIST changes: -NS 1,000 ML IV ONE
[2020-10-12 17:06] LABS: APPEARANCE, URINE CLEAR (CLEAR); BACTERIA, URINE AUTO NEGATIVE (NEGATIVE); BILIRUBIN, URINE AUTO NEGATIVE (NEGATIVE); BLOOD, URINE BLOOD 1+ (NEGATIVE); COLOR, URINE STRAW (YELLOW); GLUCOSE, URINE (UA) AUTO NEGATIVE (NEGATIVE); KETONE, URINE AUTO NEGATIVE (NEGATIVE); LEUKOCYTE ESTERASE, URINE AUTO TRACE (NEGATIVE); NITRITE, URINE AUTO NEGATIVE (NEGATIVE); PROTEIN, URINE AUTO NEGATIVE (NEGATIVE); RBC, URINE AUTO 2 /HPF (0-3); SPECIFIC GRAVITY URINE AUTO 1.009 (1.002-1.035); SQUAMOUS EPITHELIAL CELL UR AU 0 /HPF (0-6); UROBILINOGEN, URINE AUTO 0.2 mg/dL (0.0-2.0); WBC, URINE AUTO 1 /HPF (0-3)
== END ==
LOC: M SFHCADAM 13:22
PROVIDERS: ATTEND Physician Assistant
DX: N23 Unspecified renal colic (principal)

== ENCOUNTER → 2020-11-17 | Outpatient (CLI) | payer BC ==
--- NOTE | 2020-11-17 10:10 | REP ---
INDICATION: KIDNEY PAIN COMPARISON: None TECHNIQUE: Real time strickland scale and color ultrasound examination using curved array transducer. FINDINGS: Right kidney measures 11.4 x 4.4 x 5.0 cm with [id number] hydronephrosis and 13 mm, 11 mm, and 10 mm shadowing structures in the lower pole suggesting nonobstructing calculi. Left kidney measures 9.8 x 5.4 x 4.9 cm without hydronephrosis or nephrolithiasis. The bladder is unremarkable as visualized. IMPRESSION: Right-sided hydronephrosis and multiple nonobstructing right renal calculi suggested measuring between 10 and 13 mm. <Electronically signed by Waldemar Cooney > 11/17/20 1007
== END ==
LOC: M RAD 09:27
PROVIDERS: ATTEND Physician Assistant
DX: R31.29 Other microscopic hematuria (principal); R10.9 Unspecified abdominal pain

== ENCOUNTER → 2020-12-17 | Outpatient (REF) | payer BC ==
[2020-12-17 12:33] LABS: APPEARANCE, URINE CLEAR (CLEAR); BACTERIA, URINE AUTO NEGATIVE (NEGATIVE); BILIRUBIN, URINE AUTO NEGATIVE (NEGATIVE); BLOOD, URINE BLOOD 1+ (NEGATIVE); COLOR, URINE YELLOW (YELLOW); GLUCOSE, URINE (UA) AUTO NEGATIVE (NEGATIVE); KETONE, URINE AUTO NEGATIVE (NEGATIVE); LEUKOCYTE ESTERASE, URINE AUTO NEGATIVE (NEGATIVE); MUCUS, URINE SMALL (NEGATIVE); NITRITE, URINE AUTO NEGATIVE (NEGATIVE); PROTEIN, URINE AUTO NEGATIVE (NEGATIVE); RBC, URINE AUTO 0 /HPF (0-3); SPECIFIC GRAVITY URINE AUTO 1.006 (1.002-1.035); SQUAMOUS EPITHELIAL CELL UR AU 0 /HPF (0-6); UROBILINOGEN, URINE AUTO 0.2 mg/dL (0.0-2.0); WBC, URINE AUTO 1 /HPF (0-3)
[2020-12-17 13:09] LABS: BLOOD UREA NITROGEN 13 MG/DL (7-18); CALCIUM LEVEL 9.6 MG/DL (8.5-10.1); CARBON DIOXIDE LEVEL 26 MEQ/L (21-32); CHLORIDE LEVEL 107 MEQ/L (98-107); CREATININE FOR GFR 0.81 MG/DL (0.55-1.30); GLOMERULAR FILTRATION RATE > 60.0 (>51); GLUCOSE, FASTING 86 MG/DL (70-100); POTASSIUM SERUM 4.3 MEQ/L (3.5-5.1); SODIUM LEVEL 139 MEQ/L (136-145)
== END ==
LOC: M LABSMT 10:17
PROVIDERS: ATTEND Nurse Practitioner Family
DX: N13.30 Unspecified hydronephrosis (principal)

== ENCOUNTER → 2020-12-25 | Outpatient (CLI) | payer BC ==
[~2020-12-25] MED LIST changes: +ISOVUE-370 76% 100ML VIAL As Ordered ONE
--- NOTE | 2020-12-25 11:30 | REP ---
INDICATION: UNSPECIFIED HYDRONEPHROSIS. COMPARISON: Comparison sonography November 17, 2020. This showed right-sided hydronephrosis and multiple nonobstructive intrarenal calculi on the right.. TECHNIQUE: Contrast dose: 100 ML of Isovue [address] technique: Helical scanning is acquired and overlapping 1.5 mm and contiguous 3 mm axial images are reformatted. In addition, maximum intensity projection and multiplanar re-formation images are generated in sagittal and coronal imaging projections. FINDINGS: Preliminary digital steel placer radiograph demonstrates cholecystectomy clips in the right upper quadrant, a normal bowel gas pattern, and calcific densities in the right renal fossa region. Axial CT images demonstrate linear discoid atelectasis in the right lower lobe. There is no evidence of pleural effusion. There is a noncalcified pulmonary nodule in the left lower lobe measuring 7.4 mm. On multiplanar re-formation images, this has a flat almost linear configuration which may reflect a fibrotic etiology. However, baseline chest CT study and depending on the results, interval CT follow-up for this nodule recommended. The liver and the spleen are normal in size homogeneous in texture on pre and postcontrast images. No focal liver lesion is seen. The patient is status post cholecystectomy and what appears to be gastric stapling. No adrenal lesion is seen. No abnormality is noted in the pancreas. No biliary ductal dilation is observed. Small bowel and large bowel loops show no acute abnormality. There is mild diverticulosis in the sigmoid colon. Normal appendix is seen. No retroperitoneal mass or adenopathy is observed. No uterine or adnexal abnormality is seen. Urinary bladder is unremarkable. Moderate right-sided hydronephrosis is confirmed with a rounded ureteropelvic junction. No obstructive mass or obstructive calculus is seen and the configuration of the right kidney suggests developmental UPJ obstruction. There are large intrarenal calculi on the right, 2-3 in number. There are 2 calculi measuring 12 mm 1 in the upper pole and 1 in the lower pole on the right. There is also a 7 mm calculus adjacent to the larger calculus in the upper pole region. There is no evidence of intrarenal calculus or hydronephrosis on the left. No filling defect is seen within the left collecting system on delayed contrast images. Contrast fluid levels are seen in the dilated collecting system on the right. There is a small cyst in the upper pole of the right kidney measuring 12 mm. IMPRESSION: 1. Multiple large intrarenal calculi right kidney associated with right-sided hydronephrosis and findings suggestive of right ureteropelvic junction obstruction. No obstructive calculus is seen. 2. Left colonic diverticulosis. 3. 7 mm noncalcified pulmonary nodule in the left lower lobe recommend chest CT and follow-up according to its findings. <Electronically signed by Osei Belcher > 12/25/20 1120
== END ==
LOC: M RAD 10:06
PROVIDERS: ATTEND Nurse Practitioner Family
DX: N13.30 Unspecified hydronephrosis (principal)
CPT/HCPCS: 74178; Q9967

== ENCOUNTER → 2020-12-27 | Outpatient (REF) | payer BC ==
[~2020-12-27] MED LIST changes: -ISOVUE-370 76% 100ML VIAL As Ordered ONE
[2020-12-27 18:23] LABS: APPEARANCE, URINE HAZY (CLEAR); BACTERIA, URINE AUTO 1+ (NEGATIVE); BILIRUBIN, URINE AUTO NEGATIVE (NEGATIVE); BLOOD, URINE BLOOD 1+ (NEGATIVE); COLOR, URINE YELLOW (YELLOW); GLUCOSE, URINE (UA) AUTO NEGATIVE (NEGATIVE); KETONE, URINE AUTO NEGATIVE (NEGATIVE); LEUKOCYTE ESTERASE, URINE AUTO 1+ (NEGATIVE); NITRITE, URINE AUTO NEGATIVE (NEGATIVE); PROTEIN, URINE AUTO NEGATIVE (NEGATIVE); RBC, URINE AUTO 2 /HPF (0-3); SPECIFIC GRAVITY URINE AUTO 1.011 (1.002-1.035); SQUAMOUS EPITHELIAL CELL UR AU 1 /HPF (0-6); UROBILINOGEN, URINE AUTO 0.2 mg/dL (0.0-2.0); WBC, URINE AUTO 21 /HPF (0-3)
== END ==
LOC: M LAB REF 16:39
PROVIDERS: ATTEND Physician Assistant Medical
DX: N39.0 Urinary tract infection, site not specified (principal)

== ENCOUNTER → 2021-01-10 | Outpatient (REF) | payer BC ==
[2021-01-10 17:26] LABS: APPEARANCE, URINE CLEAR (CLEAR); BACTERIA, URINE AUTO NEGATIVE (NEGATIVE); BILIRUBIN, URINE AUTO NEGATIVE (NEGATIVE); BLOOD, URINE BLOOD NEGATIVE (NEGATIVE); COLOR, URINE STRAW (YELLOW); GLUCOSE, URINE (UA) AUTO NEGATIVE (NEGATIVE); KETONE, URINE AUTO NEGATIVE (NEGATIVE); LEUKOCYTE ESTERASE, URINE AUTO NEGATIVE (NEGATIVE); NITRITE, URINE AUTO NEGATIVE (NEGATIVE); PROTEIN, URINE AUTO NEGATIVE (NEGATIVE); RBC, URINE AUTO 0 /HPF (0-3); SPECIFIC GRAVITY URINE AUTO 1.005 (1.002-1.035); SQUAMOUS EPITHELIAL CELL UR AU 0 /HPF (0-6); UROBILINOGEN, URINE AUTO 0.2 mg/dL (0.0-2.0); WBC, URINE AUTO 1 /HPF (0-3)
== END ==
LOC: M SMT 16:58
PROVIDERS: ATTEND Nurse Practitioner Family
DX: N39.0 Urinary tract infection, site not specified (principal)

== ENCOUNTER → 2021-01-13 | Outpatient (CLI) | payer BC ==
[~2021-01-13] MED LIST changes: +ISOVUE-370 76% 100ML VIAL As Ordered ONE
--- NOTE | 2021-01-13 15:56 | REP ---
INDICATION: LUNG NODULE COMPARISON: Lung base images obtained during abdominal and pelvic CT scanning of 12/25/2020 TECHNIQUE: Standard helical technique after the intravenous administration of 100 cc Isovue 370. FINDINGS: Prominent but nonenlarged lymph nodes are seen in the mediastinum and pulmonary paula. There are no pleural or pericardial effusions. The imaged upper abdomen is unchanged from the prior abdominal CT obtained 12/25/2020. the imaged osseous structures are within normal limits for the patient's age. Evaluation of the lung tomas shows no change in the appearance of the 7 mm size nodule seen previously in the left lower lobe. There are numerous asymmetric and reticulonodular density seen in the mid and particularly upper lung zones some of which are tree in bud in the apical regions and seen in conjunction with bullous emphysematous changes. There is an incidental calcified granuloma in the right upper lobe. IMPRESSION: 1. Persistent irregular 7 mm size nodule in the left lower lobe. According to the revised Fleischner society criteria this represents a category 4A lesion for which a 3 month follow-up chest CT is recommended. Due to its irregularity consideration could be made for PET-CT at this time as well. 2. There are chronic lung field changes particularly in the upper lobes as described above. These changes can also be re-evaluated in 3 months. Consider pulmonary consultation at this time. <Electronically signed by Vinh Lovett > 01/13/21 4110
== END ==
LOC: M RAD 15:03
PROVIDERS: ATTEND Physician Assistant
DX: R91.1 Solitary pulmonary nodule (principal)

== ENCOUNTER → 2021-03-03 | Outpatient (CLI) | payer BC ==
[~2021-03-03] MED LIST changes: -ISOVUE-370 76% 100ML VIAL As Ordered ONE
--- NOTE | 2021-03-03 13:28 | PFTRPT ---
Visit Date: 03/03/2021 Referring Doctor: Demar Jain MD Height: 63.00 Inches Weight: 196.00 Lbs BSA: 1.92 Diagnosis: R91.8 Pre and post bronchodilator studies have excellent technical quality. Forced vital capacity is normal. FEV1 is out of proportion. Obstructive index is therefore refused. Expiratory limit of the flow-volume loop does suggest some degree of flow rate limitation. No significant bronchodilator response is identified. Total lung capacity is elevated. Residual volume is consistent with air trapping. Diffusing capacity is normal. Hemoglobin is acceptable at 12.7. Airway resistance and conductance are normal. IMPRESSION: Mild obstructive ventilatory impairment with underlying air trapping. Please correlate clinically. MTDD
== END ==
LOC: M CARPUL 12:43
PROVIDERS: ATTEND Internal Medicine Pulmonary Disease
DX: R91.8 Other nonspecific abnormal finding of lung field (principal)

== ENCOUNTER → 2021-03-24 | Outpatient (CLI) | payer BC ==
--- NOTE | 2021-03-24 13:20 | REP ---
INDICATION: ABN FINDING OF LUNG COMPARISON: 01/13/2021 TECHNIQUE: Standard helical technique without intravenous contrast administration FINDINGS: There is no significant change in appearance of the mediastinum or pulmonary paula. There is no evidence of a mass or adenopathy. There are no pleural or pericardial effusions. There is no significant change in the osseous structures. Since the last exam a right-sided renal stent has been placed the imaged portion is in the region of the renal pelvis. Evaluation of the lung tomas shows no significant change in appearance of the 7 mm sized left lower lobe nodule. Chronic lung field changes are again seen in the upper lobes status quo. The tree in bud appearance is essentially unchanged. The basilar curvilinear densities are also stable. No definite new abnormal nodules, masses, or opacities have developed. IMPRESSION: There is no significant change in appearance of the chest were appear to the prior exam with findings as described above. The left lower lobe nodule can now be categorized as a lung rads category 2 nodule and for which a 1 year follow-up CT scan of the chest is recommended as per the revised Fleischner society criteria. There are, however, chronic lung field changes as described above which may warrant a shorter term interval follow-up if clinically relevant. <Electronically signed by Vinh Lovett > 03/24/21 5420
== END ==
LOC: M PLAIMG 12:16
PROVIDERS: ATTEND Internal Medicine Pulmonary Disease
DX: R91.8 Other nonspecific abnormal finding of lung field (principal)

== ENCOUNTER → 2021-10-27 | Outpatient (CLI) | payer BC ==
[~2021-10-27] MED LIST changes: -OMEP-221 PO; +OMEP40CA5 PO
== END ==
LOC: M RAD 08:40
PROVIDERS: ATTEND Internal Medicine Pulmonary Disease
DX: R91.8 Other nonspecific abnormal finding of lung field (principal)

== ENCOUNTER → 2024-10-29 | Outpatient (CLI) | payer BC ==
[2024-10-29 08:37] LABS: BASO % 0.6 % (0.0-1.0); EOS # 0.2 10^3/uL (0.0-0.5); HEMATOCRIT 42.8 % (36.0-47.0); HEMOGLOBIN 14.1 g/dl (12.0-15.5); LYMPH # 3.2 10^3/uL (1.5-5.0); LYMPH % 44.9 % (24.0-44.0); MEAN CORPUSCULAR HEMOGLOBIN 29.5 pg (27.0-33.0); MEAN CORPUSCULAR HGB CONC 32.9 g/dl (32.0-36.5); MEAN CORPUSCULAR VOLUME 89.5 fl (80.0-96.0); MONO # 0.5 10^3/uL (0.0-0.8); MONO % 6.8 % (2.0-8.0); NEUTROPHILS # 3.2 10^3/uL (1.5-8.5); NEUTROPHILS % 44.6 % (36.0-66.0); PLATELET COUNT, AUTOMATED 276 10^3/uL (150-450); RED BLOOD COUNT 4.78 10^6/uL (4.00-5.40); WHITE BLOOD COUNT 7.1 10^3/uL (4.0-10.0)
[2024-10-29 09:13] LABS: ALBUMIN 3.5 G/DL (3.2-5.2); BILIRUBIN,TOTAL 0.4 MG/DL (0.3-1.2); CALCIUM LEVEL 8.6 MG/DL (8.5-10.1); CHOLESTEROL RISK RATIO 3.64 (<5); CREATININE FOR GFR 0.84 MG/DL (0.55-1.30); HDL CHOLESTEROL 50.5 MG/DL (>40); LDL CHOLESTEROL 109.1 MG/DL (<100); MAGNESIUM LEVEL 2.2 MG/DL (1.8-2.4); NON-HDL-C 133.5 MG/DL; POTASSIUM SERUM 4.5 MMOL/L (3.5-5.1); TOTAL PROTEIN 6.9 G/DL (5.7-8.2)
[2024-10-29 09:15] LABS: FOLATE 10.6 NG/ML (>5.4); TOTAL 25(OH) VITAMIN D 44.6 NG/ML (20.0-100.0)
== END ==
LOC: M LAB 08:10
PROVIDERS: ATTEND Physician Assistant
DX: E66.811 Obesity, class 1 (principal); Z13.220 Encounter for screening for lipoid disorders; Z13.1 Encounter for screening for diabetes mellitus; K91.2 Postsurgical malabsorption, not elsewhere classified; Z68.34 Body mass index [BMI] 34.0-34.9, adult; E55.9 Vitamin D deficiency, unspecified

== ENCOUNTER → 2024-11-12 | Outpatient (CLI) | payer BC | LOC: M PLAIMG 10:47 | PROVIDERS: ATTEND Physician Assistant | DX: R91.8 Other nonspecific abnormal finding of lung field (principal); Z87.891 Personal history of nicotine dependence; J43.9 Emphysema, unspecified; J44.9 Chronic obstructive pulmonary disease, unspecified; Z98.84 Bariatric surgery status; Z90.49 Acquired absence of other specified parts of digestive tract ==

== ENCOUNTER → 2025-02-26 | Outpatient (CLI) | payer BC | LOC: M CARPUL 12:20 | PROVIDERS: ATTEND Internal Medicine Pulmonary Disease | DX: J43.9 Emphysema, unspecified (principal) ==